=== PATIENT | female | born 1970 | race Caucasian/White ===

== ENCOUNTER 2023-07-14 10:38 | Outpatient (CLI) | payer MEDICARE, MEDICAID | END 2023-07-14 23:59 | disposition home or self-care (01) | LOC: RAD 10:38 | PROVIDERS: ATTEND Physician Assistant | DX: M54.31 Sciatica, right side (principal); I70.0 Atherosclerosis of aorta | CPT/HCPCS: 72110 ==

== ENCOUNTER 2024-07-18 11:14 | Outpatient (CLI) | payer MEDICARE, MEDICAID ==
--- NOTE | 2024-07-18 13:02 | RADIOLOGY REPORT ---
CLINICAL INDICATION: trauma TECHNIQUE: 3 radiographic views of the sacrum/coccyx were obtained. Comparison: None FINDINGS/IMPRESSION: Age indeterminate fracture of the distal sacrum.
== END 2024-07-18 23:59 | disposition home or self-care (01) ==
LOC: RAD 11:14
DX: S32.10XA Unspecified fracture of sacrum, initial encounter for closed fracture (principal); M53.3 Sacrococcygeal disorders, not elsewhere classified; X58.XXXA Exposure to other specified factors, initial encounter; Y93.89 Activity, other specified; Y92.89 Other specified places as the place of occurrence of the external cause; Y99.8 Other external cause status
CPT/HCPCS: 72220